=== PATIENT | female | born 1940 | race Caucasian/White ===

== ENCOUNTER 2020-12-24 09:14 | Emergency (ER) | payer MEDICARE, MEDICAID, SELFPAY ==
[2020-12-24 09:30] VITALS: BP 131/68; PULSE 67; RESP 16; TEMP 37.2; O2SAT 94; BMI 12.7
--- NOTE | 2020-12-24 09:47 | PC.NURSE ---
Rhythm change, ERP notified.
--- NOTE | 2020-12-24 09:55 | ECG_ITS ---
[facility] Test Date: 2020-12-24 Pat Name: Romana Tidwell Department: Room: Gender: Female Ban[employer]air Person: : 1940 Requested By: Khurram Hinkle Order Number: [id number] Lisette MD: Mik Barcenas M.D. Measurements Intervals [place] Rate: 67 P: 80 PA: 225 QRS: 69 QRSD: 93 T: 81 QT: 365 QTc: 387 Interpretive Statements SINUS RHYTHM WITH FIRST DEGREE AV BLOCK WITH FREQUENT VENTRICULAR PREMATURE COMPLEXES ANTEROSEPTAL MYOCARDIAL INFARCTION , OF INDETERMINATE AGE [40+ ms Q WAVE IN V1-V4] No previous ECG available for comparison Electronically Signed On 12-24-2020 23:26:17 CDT by Mik Barcenas M.D. [id number]
--- NOTE | 2020-12-24 09:56 | XR_ITS ---
WS: [id number] Exam: XR chest 1V portable [id number] Date/Time of Exam: 12/24/2020 9:56 AM Reason For Exam: dyspnea/cough No priors. The lungs are hyperinflated suggesting obstructive lung disease. There are several ill-defined noncal cified nodules in the right upper lobe. There is also a 3 cm density in the left upper lobe that may be partially calcified. Heart size is normal. The mediastinum is not widened. No pneumothorax or pleu ral effusion. Bony structures are unremarkable. Nodular densities projected over the bilateral lower lung zones are probably nipple shadows. Recommendations: Nonemergent contrast CT scanning the chest recommended for further workup. XR/XR chest 1V portable [id number] IMPRESSION: 1. Several ill-defined soft tissue nodules are seen in the upper lobe of the ri ght lung. Metastatic disease or primary pulmonary malignancy not excluded. Ther e is also a 3 cm probable calcified lesion in the upper lobe of the left lung. 2. Pulmonary hyperinflation suggesting obstructive lung disease.
--- NOTE | 2020-12-24 09:57 | ED_ITS ---
HPI - Chest Pain General: Chief Complaint: Chest Pain Stated Complaint: WEAK/ TIRED/ COPD Time Seen by Provider: 12/24/20 09:17 History of Present Illness: HPI narrative: 80-year female presents via EMS from assisted living. They report she was bradycardic. Patient denies any pain. She is listed as having a chief complaint is chest pain but she denies any chest discomfort or shortness of breath she states she feels fine she denies any palpitations. She does states she feels tired and a little weak at times. She not had any recent medication changes. She not missed any doses of medicines or had any increases. She denies any fever sweats or chills. Onset: during rest Pain radiation: none Relieving factors: nothing Exacerbating factors: nothing Associated symptoms: Deny abdominal pain, diaphoresis, dyspnea, fever(s), leg edema, nausea, palpitations, sense of impending doom, syncope or vomiting Treatment prior to arrival: none Review of Systems Const: Denies: fever(s) or diaphoresis ENMT: Denies: throat pain, ear or mastoid pain, nasal discharge or nasal congestion Card: Denies: palpitations or syncope Resp: Denies: dyspnea GI: Denies: abdominal pain, nausea or vomiting : Denies: flank pain, difficulty voiding, dysuria, urinary frequency or urinary urgency Skin/Breast: Denies: rash or pruritus Physical Exam Const: COMMON NORMALS: no acute distress GENERAL APPEARANCE: cooperative and comfortable ORIENTATION/CONSCIOUSNESS: Yes awake, Yes oriented to person, Yes oriented to place and Yes oriented to time HENMT: COMMON NORMALS: normocephalic, atraumatic and hearing grossly normal bilaterally HEAD & SCALP: normocephalic and atraumatic Neck/C-Spine: COMMON NORMALS: no JVD Resp: COMMON NORMALS: normal respiratory effort, No retractions, No use of accessory muscles and clear to auscultation bilaterally AUSCULTATION: clear to auscultation bilaterally Cardio: COMMON NORMALS: no JVD, regular rhythm and No murmurs present (Cardio) RATE: bradycardic RHYTHM: regular rhythm GI: COMMON NORMALS: Soft to palpation and No hepatosplenomegaly present AUSCULTATION: Yes normoactive bowel sounds PALPATION: Yes Soft to palpation, No Tenderness to palpation present (GI), No Guarding due to palpation present (GI) and Yes No hepatosplenomegaly present Extremity: COMMON NORMALS: normal to inspection, capillary refill normal, no clubbing, cyanosis or edema, no calf tenderness and no pedal edema Neuro: SENSORIUM/ORIENTATION: Yes oriented to person, Yes oriented to place and Yes oriented to time Skin: COMMON NORMALS: no rashes or lesions noted GENERAL SKIN EXAM: no rashes or lesions noted Course Vital Signs: Vital signs: Vital Signs Temperature 98.9 F 12/24/20 09:30 Pulse Rate 61 12/24/20 12:02 Respiratory Rate 18 12/24/20 12:02 Blood Pressure 168/67 12/24/20 12:02 Pulse Oximetry 100 12/24/20 12:02 MDM - Chest Pain MDM Narrative: Medical decision making narrative: Patient is mildly bradycar dic but pressure remained stable. Reviewed labs with her. She has chronic hyponatremia she is mildly anemic but does not require transfusion at this time. Her dig level is mildly elevated we will hold her dig and have her recheck a dig level BMP and CBC in 2 days. We can discharge her back to the senior care. Additionally start on Macrobid twice daily for her bladder infection. The Macrobid was on the discharge sheet but is not saved on the ER note due to an EMR programming issue. Lab Data: Labs: Lab Results 12/24/20 12/24/20 12/24/20 09:25 09:25 10:46 WBC 6.6 10^3/uL 10^3/ uL (4.0-10.0) RBC 3.15 10^6/uL L 10 ^6/uL (4.1-5.3) Hgb 9.4 g/dL L g/dL (11.5-15.3) Hct 27.2 % L % (37.0-47.0) MCV 86.3 fl fl (81-99) MCH 29.8 pg pg (28.0-34.0) MCHC 34.6 g/dL g/dL (30.0-36.0) RDW 12.7 % % (12.1-15.1) Plt Count 451 10^3/cmm H 10 ^3/cmm (130-400) MPV 9.5 fL fL (7.4-10.4) Neut % (Auto) 76.5 % % Lymph % (Auto) 9.3 % % [place] % (Auto) 11.7 % % Eos % (Auto) 1.4 % % Baso % (Auto) 0.8 % % Neut # (Auto) 5.08 10^3/uL 10^3 /uL (1.8-7.7) Lymph # (Auto) 0.6 10^3/uL L 10^ 3/uL (0.8-4.8) [place] # (Auto) 0.8 10^3/uL 10^3/ uL (0.2-0.9) Eos # (Auto) 0.1 10^3/uL 10^3/ uL (0.0-0.8) Baso # (Auto) 0.1 10^3/uL 10^3/ uL (0.0-0.1) Nucleated RBC % (a uto) 0 % % Nucleated RBCs # 0.0 /100WBC /100W BC Sodium 120 mmol/L L mmol /L (136-145) Potassium 3.9 mmol/L mmol/L (3.5-5.1) Chloride 83 mmol/L L mmol/ L (98-107) Carbon Dioxide 28 mmol/L mmol/L (22-29) Anion Gap 12.9 (5-19) BUN 12 mg/dL mg/dL (8-23) Creatinine 0.4 mg/dL L mg/dL (0.5-0.9) GFR Calculation Not Reportable Glucose 103 mg/dL mg/dL (65-115) Calculated Osmolal ity 250 mOsm/kg L mOs m/kg (285-295) Calcium 8.7 mg/dL mg/dL (8.5-10.5) Total Bilirubin 0.4 mg/dL mg/dL (0.15-1.2) AST 20 U/L U/L (0-32) ALT 20 U/L U/L (0-33) Alkaline Phosphata se 54 IU/L IU/L (35-105) Creatine Kinase 42 U/L U/L (26-192) Total Protein 6.3 g/dL L g/dL (6.6-8.7) Albumin 3.5 g/dL g/dL (3.5-5.2) Globulin 2.8 g/dL g/dL (1.3-4.6) Urine Color Straw (Yellow) Urine Appearance Hazy A (CLEAR) Urine pH 6.5 (5-7) Ur Specific Gravit y 1.015 (1.005-1.030) Urine Protein Neg (Negative) Urine Glucose (UA) Norm (Normal) Urine Ketones Negative (Negative) Urine Blood Neg (Negative) Urine Nitrate Positive H (Negative) Urine Bilirubin Neg (Negative) Urine Urobilinogen Norm mg/dL mg/dL (Negative) Ur Leukocyte Yasmin ase Negative (Negative) Urine RBC 0-4 /hpf H /hpf (0-2) Urine WBC 10-15 /hpf H /hpf (0-5) Ur Squamous Epith Cells Not Reportable Ur Transition Epit h Cell 0-4 /hpf /hpf Amorphous Sediment Not Reportable Urine Bacteria 4+ /hpf H /hpf (NONE) Digoxin 1.3 ng/mL H ng/mL (0.6-1.2) Discharge Plan Discharge Patient Disposition: Home Clinical Impression: Bradycardia, Medication side effects, Cystitis, Anemia, Chronic hyponatremia Condition: Stable Discharge Orders: Discharge ED (Routine); Ordered 12/24/20 Ordered By: Khurram Catherine Referrals: Rufina Crespo MD [Primary Care Provider] - Patient Instructions: Opioid Safety Activity Restrictions/Additional Instructions: Hold dig x1 day. Follow-up with primary care doctor with repeat dig level, BMP and CBC in 2 days Coding Level of Care Code ED [employer]per for Chg Fwd Exam Comprehensive
[2020-12-24 10:08] LABS: Basophils # 0.1 10^3/uL (0.0-0.1); Basophils % 0.8 %; Eosinophils # 0.1 10^3/uL (0.0-0.8); Eosinophils % 1.4 %; Hematocrit 27.2 % (37.0-47.0); Hemoglobin 9.4 g/dL (11.5-15.3); Lymphocytes # 0.6 10^3/uL (0.8-4.8); Lymphocytes % 9.3 %; Mean Corpuscular HGB Conc 34.6 g/dL (30.0-36.0); Mean Corpuscular Hemoglobin 29.8 pg (28.0-34.0); Mean Corpuscular Volume 86.3 fl (81-99); Mean Platelet Volume 9.5 fL (7.4-10.4); Monocytes # 0.8 10^3/uL (0.2-0.9); Monocytes % 11.7 %; Neutrophils # 5.08 10^3/uL (1.8-7.7); Neutrophils % 76.5 %; Nucleated Red Blood Cells % 0 %; Platelet Count 451 10^3/cmm (130-400); Red Blood Count 3.15 10^6/uL (4.1-5.3); Red Cell Distribution Width 12.7 % (12.1-15.1); White Blood Count 6.6 10^3/uL (4.0-10.0)
[2020-12-24 10:19] LABS: Alanine Aminotransferase 20 U/L (0-33); Albumin Level 3.5 g/dL (3.5-5.2); Alkaline Phosphatase 54 IU/L (35-105); Anion Gap 12.9 (5-19); Aspartate Amino Transferase 20 U/L (0-32); Blood Urea Nitrogen 12 mg/dL (8-23); Calcium 8.7 mg/dL (8.5-10.5); Carbon Dioxide 28 mmol/L (22-29); Chloride 83 mmol/L (98-107); Creatine Phosphokinase 42 U/L (26-192); Digoxin 1.3 ng/mL (0.6-1.2); Globulin 2.8 g/dL (1.3-4.6); Glucose 103 mg/dL (65-115); Osmolality Calculated 250 mOsm/kg (285-295); Potassium 3.9 mmol/L (3.5-5.1); Sodium 120 mmol/L (136-145); Total Bilirubin 0.4 mg/dL (0.15-1.2); Total Protein 6.3 g/dL (6.6-8.7)
[2020-12-24 10:48] VITALS: BP 169/70; PULSE 76; RESP 17; O2SAT 100
[2020-12-24 11:32] LABS: Add Urine Microscopic? YES; Bilirubin Urine Neg (Negative); Blood Urine Neg (Negative); Glucose Urine UA Norm (Normal); Ketones Urine Negative (Negative); Leukocyte Esterase Urine Negative (Negative); Nitrate Urine Positive (Negative); Protein Urine Neg (Negative); Specific Gravity, Urine 1.015 (1.005-1.030); Urine Appearance Hazy (CLEAR); Urine Color Straw (Yellow); Urobilinogen Urine Norm (Negative); pH Urine 6.5 (5-7)
[2020-12-24 11:33] LABS: Add Urine Culture? Yes; Bacteria Urine 4+ /hpf; RBC Urine 0-4 /hpf (0-2); Transitional Epi Cells Urine 0-4 /hpf
[2020-12-24 12:02] VITALS: BP 168/67; PULSE 61; RESP 18; O2SAT 100
--- NOTE | 2020-12-24 13:59 | PC.NURSE ---
Transport from facility arrived without oxygen. Called facility and spoke to ROLANDA Ruelas. Nurse states that pt is okay to ride home without oxygen as she often removed oxygen for 45mins at a time to eat and o2 sats stay above 94%. Pt is transported and discharged from facility.
== END 2020-12-24 13:51 | disposition home or self-care (01) ==
PROVIDERS: Emergency Provider Family Medicine; PCP Family Medicine
DX: R00.1 Bradycardia, unspecified (principal); N30.90 Cystitis, unspecified without hematuria; D64.9 Anemia, unspecified; E87.1 Hypo-osmolality and hyponatremia; T50.905A Adverse effect of unspecified drugs, medicaments and biological substances, initial encounter
CPT/HCPCS: 71045; 80053; 80162; 81001; 82550; 85025; 87077; 87086; 87186; 93005; 99283